=== PATIENT | male | born 1950 | race Caucasian/White ===

== ENCOUNTER 2023-05-25 06:51 | Day surgery (SDC) | payer OTHER ==
[2023-05-22 14:40] LABS: Absolute Lymphocytes (CBC) 1.5 K/uL (0.7-4.9); Hematocrit 52.3 % (39.6-49.0); Lymphocytes % 26.2 % (15.3-44.8); MPV 8.1 fL (7.6-11.3); RBC Red Blood Cell Count 5.51 M/uL (4.33-5.43)
--- NOTE | 2023-05-22 14:50 | RAD REPORT ---
EXAM DESCRIPTION: Odell Rossi And Shaw (2 Views)05/22/2023 2:30 pm CLINICAL HISTORY: Preop for removal of mass from arm COMPARISON: None FINDINGS: The lungs appear clear of acute infiltrate. The heart is normal size IMPRESSION: No acute abnormalities displayed
[2023-05-25] MEDS: NA CHLORIDE 0.9% 1,000 ML ONE (07:15)
[2023-05-25] MEDS: CEFAZOLIN SODIUM 1 GM/VIAL ONE ×2 (07:43→08:37)
[2023-05-25] MEDS ORDERED: MIDAZOLAM HCL 2 MG/2 ML INJ ONE (08:26)
[2023-05-25] MEDS ORDERED: propofoL 200 MG/20 ML VIAL IV ONE (08:26)
[2023-05-25] MEDS ORDERED: FENTANYL CITR 100 MCG/2 ML ONE (08:26)
[2023-05-25] MEDS ORDERED: ROCURONIUM 50 MG/5 ML VIAL IV ONE (08:28)
[2023-05-25] MEDS ORDERED: LIDOCAINE 2% MPF 5 ML VIAL ONE (08:29)
[2023-05-25] MEDS ORDERED: ONDANSETRON 4 MG/2 ML VIAL ONE (08:29)
[2023-05-25] MEDS: BUPIVACAINE 0.5% PF 10 ML VIAL ONE ×2 (08:54→09:00)
--- NOTE | 2023-05-25 09:12 | P.BOP ---
Preoperative diagnosis: right upper arm intramuscular mass Postoperative diagnosis: same Primary procedure: EXcisional biopsy of right upper arm intramuscular mass 3x2cm Estate Planner: Jovita Mclean (Rajan) Estimated blood loss: <10cc Specimen: mass Findings: mass Anesthesia: General Complications: None Transferred to: Recovery Room Condition: Good
[2023-05-25] MEDS ORDERED: KETOROLAC 30 MG/ML INJ ONE (09:28)
[2023-05-25] MEDS: FENTANYL CITR 100 MCG/2 ML ONE ×3 (09:43→09:53)
[2023-05-25 10:20] VITALS: BP 116/89; TEMP 97.5; O2SAT 96
[2023-05-25] MEDS ORDERED: HYDROCODONE/APAP 10/325 TAB ONE (10:42)
[2023-05-25] MEDS ORDERED: HYDROCODONE/APAP 10/325 TAB PO ONE (10:56)
--- NOTE | 2023-06-01 10:46 | OP ---
Date of Procedure: 05/25/2023 Surgeon: Roderick Jimenez MD Granulating Machine Operator: Jovita Redmond. Preoperative Diagnosis: Right upper arm intramuscular mass, tender. Postoperative Diagnosis: Right upper arm intramuscular mass, tender. Procedure: Excisional biopsy of tender right upper arm intramuscular mass, 3 x 2 cm. Estimated Blood Loss: Less than 10 cc. Specimen: Mass. Anesthesia: General plus local. Findings: Patient has a subcutaneous mass. It goes partially between muscle fibers. Anesthesia: General plus local. Indications: This is the case of a male, who comes to us with a tender intramuscular mass, right upp er arm. Patient has history of trauma in that region in the past with the muscle injury. He thought at the beginning it was part of the scar tissue, but he noticed to be growing, so he comes to us. T he mass is increasing in size, giving him more tenderness and feels partially intramuscular. The alka efits, alternatives, and risks of a right upper arm excisional biopsy of intramuscular mass fully exp lained, which include, but not limited to, infection, bleeding, damage to adjacent structures, anesth esia complication, nonhealing wound, CO, and even . He also understands this may not relieve an y symptoms. He might need more than one surgical intervention. He understood, signed a consent. Th e area of concern was marked by me and the patient in the holding room. Description Of Procedure: Patient was brought to the operating room, placed in supine position. Ane sthesia was done without complication. Right upper extremity was prepped and draped in the usual khang rile fashion. A time-out was called. Local anesthesia was applied followed by sharp incision of the skin. Incision was carried down to deep subcutaneous tissue. We noticed this mass was present. It goes partially intramuscular. We were able to separate the muscle fibers and extract the mass from the muscle fibers and also from outside in one unit. The area was irrigated. Muscle fibers were alexx roximated with chromic. Subcutaneous tissue approximated with chromic and then the skin was approxim ated. Sponge counts and instrument counts were correct. Hemostasis was obtained before closure. Flo ruiz sent to recovery in stable condition. HM/MODL Voice ID: [id number] Report ID: [id number]
--- NOTE | 2023-06-01 10:52 | DS ---
Date of Discharge: 05/25/2023 Diagnosis: Right upper arm intramuscular mass. Procedure: Excisional biopsy of tender right upper arm intramuscular mass. Disposition: Home. Activity: As tolerated. No heavy lifting. Plan: Follow up in my office in 1 week. Call for appointment at [phone]. Keep area dry for 48 simone rs, then may shower. ABI Voice ID: [id number] Report ID: [id number]
== END 2023-05-25 10:50 | disposition home or self-care (01) ==
LOC: OR 06:51
PROVIDERS: ATTEND Surgery
PROC: 0JBD0ZZ Excision of Right Upper Arm Subcutaneous Tissue and Fascia, Open Approach (ICD-10-PCS; 2023-05-25)
PROC: 0JBD0ZZ Excision of Right Upper Arm Subcutaneous Tissue and Fascia, Open Approach (ICD-10-PCS; principal; 2023-05-25 08:30)
DX: D17.9 Benign lipomatous neoplasm, unspecified (principal)
CPT/HCPCS: 11403 ×2; 85025; 80048; 36415; 82947; 88304; 71046; 12032; J2704; J2001; J2250; J3010 ×2; J2405; J7030; J0690; 88305